=== PATIENT | female | born 1980 | race Caucasian/White ===

== ENCOUNTER 2017-06-23 10:29 | Emergency (ER) | payer MEDICAID ==
[~2017-06-23] VITALS: Ht 165.1 cm; Wt 85.0 kg
[2017-06-23] MEDS ORDERED: LORazepam 2 mg/ml vial IM ONE (12:05)
[2017-06-23] MEDS ORDERED: proCHLORperazine 10 MG/2 ml inj IM ONE (12:05)
[2017-06-23 12:35] LABS: URINE HCG NEGATIVE (NEG)
[2017-06-23 12:49] LABS: URINE AMPHETAMINE SCREEN NEGATIVE (Neg); URINE BARBITUATE SCREEN NEGATIVE (Neg); URINE BENZODIAZEPINES SCREEN NEGATIVE (Neg); URINE CANNABINOID SCREEN POSITIVE (Neg); URINE COCAINE SCREEN NEGATIVE (Neg); URINE METHADONE SCREEN NEGATIVE (Neg); URINE OPIATE SCREEN NEGATIVE (Neg); URINE PHENCYCLIDINE SCREEN NEGATIVE (Neg)
[2017-06-23] MEDS ORDERED: haloperidol lactate 5mg/ml inj IM ONE (13:45)
[2017-06-23] MEDS ORDERED: diphenhydrAMINE 50 mg/ml inj IM ONE (13:45)
[2017-06-23 13:57] VITALS: BP 154/91
[2017-06-23] MEDS ORDERED: ONDA4TAB6 PO (14:13)
[2017-06-23] MEDS ORDERED: ondansetron 4mg rapidly disintigrating tab PO ONE (14:15)
== END 2017-06-23 14:27 | disposition home or self-care (01) ==
LOC: ER 10:30
DX: F41.9 Anxiety disorder, unspecified (principal); F31.9 Bipolar disorder, unspecified; R11.2 Nausea with vomiting, unspecified; K21.9 Gastro-esophageal reflux disease without esophagitis; F15.10 Other stimulant abuse, uncomplicated; Z60.2 Problems related to living alone; Z56.0 Unemployment, unspecified; Z59.0 Homelessness; Z88.8 Allergy status to other drugs, medicaments and biological substances; Z79.899 Other long term (current) drug therapy
CPT/HCPCS: 80305; 81025; 96372; 99284; J0780; J1200; J1630; J2060

== ENCOUNTER 2019-08-10 09:47 | Emergency (ER) | payer MEDICAID ==
[~2019-08-10] VITALS: Ht 165.1 cm; Wt 65.0 kg
[~2019-08-10 09:47] MED LIST: ONDA4TAB6 PO
[2019-08-10 11:11] LABS: BASOPHILS % (AUTO) 0.7 % (0-1); EOSINOPHILS # (AUTO) 0.1 X10'3 (0-0.9); EOSINOPHILS % (AUTO) 1.6 % (0-6); HEMATOCRIT 41.3 % (35.0-45.0); HEMOGLOBIN 13.5 g/dl (12.0-16.0); LYMPHOCYTES # (AUTO) 2.2 X10'3 (1.1-4.8); LYMPHOCYTES % (AUTO) 40.5 % (21-51); MEAN CORPUSCULAR HEMOGLOBIN 30.2 PG (27.0-31.0); MEAN CORPUSCULAR HGB CONC 32.7 g/dL (33.0-36.5); MEAN CORPUSCULAR VOLUME 92.3 FL (78-98); MEAN PLATELET VOLUME 7.2 FL (7.4-10.4); MONOCYTES # (AUTO) 0.4 X10'3 (0-0.9); MONOCYTES % (AUTO) 7.2 % (2-12); NEUTROPHILS # (AUTO) 2.7 X10'3 (1.8-7.7); PLATELET COUNT 341 X10'3 (140-440); RED BLOOD COUNT 4.48 X10'6 (4.20-5.60); RED CELL DISTRIBUTION WIDTH 13.4 % (11.5-14.5); WHITE BLOOD COUNT 5.5 X10'3 (4.5-11.0)
[2019-08-10 11:16] LABS: URINE HCG NEGATIVE (NEG)
[2019-08-10 11:17] LABS: CLARITY,URINE SLIGHTLY CLOUDY (Clear); COLOR,URINE YELLOW (Yellow); GLUCOSE, URINE NEGATIVE (Neg); KETONES,URINE NEGATIVE (Neg); LEUKOCYTE ESTERASE ,URINE NEGATIVE (Neg); NITRITES, URINE NEGATIVE (Neg); OCCULT BLOOD,URINE NEGATIVE (Neg); PROTEIN,URINE NEGATIVE (Neg); UROBILINOGEN,URINE 0.2 E.U/dL (0.2-1.0)
[2019-08-10 11:18] LABS: UA COLLECTION TYPE CLN CATCH MIDSTREAM
[2019-08-10 11:22] LABS: MUCUS STRANDS FEW /LPF (Neg); SQUAMOUS EPITHELIAL CELL,UR FEW /LPF (FEW); URINE AMPHETAMINE SCREEN POSITIVE (Neg); URINE BARBITUATE SCREEN NEGATIVE (Neg); URINE BENZODIAZEPINES SCREEN NEGATIVE (Neg); URINE CANNABINOID SCREEN POSITIVE (Neg); URINE COCAINE SCREEN NEGATIVE (Neg); URINE METHADONE SCREEN NEGATIVE (Neg); URINE OPIATE SCREEN NEGATIVE (Neg); URINE PHENCYCLIDINE SCREEN NEGATIVE (Neg)
[2019-08-10 11:22] LABS: ALANINE AMINOTRANSFERASE 20 U/L (12-78); ALBUMIN 4.2 G/DL (3.4-5.0); ALBUMIN/GLOBULIN RATIO 1.3 (1.1-1.5); ALKALINE PHOSPHATASE 82 IU/L (46-116); ANION GAP 3 (8-16); ASPARTATE AMINO TRANSFERASE 17 U/L (10-37); BILIRUBIN,TOTAL 0.2 MG/DL (0.1-1.0); BLOOD UREA NITROGEN 11 MG/DL (7-18); BUN/CREATININE RATIO 15.7 (6.6-38.0); CALCIUM 9.1 MG/DL (8.5-10.1); CHLORIDE 104 MMOL/L (99-107); ETHANOL < 0.010 GM/DL (0.0-0.010); GLUCOSE 88 MG/DL (70-104); SODIUM 139 MMOL/L (135-145); TOTAL CARBON DIOXIDE 31.8 MMOL/L (24-32); TOTAL PROTEIN 7.5 G/DL (6.4-8.2); eGFR > 90 ML/MIN
[2019-08-10 11:23] LABS: BACTERIA,URINE 1+ /HPF (Neg); RBC,URINE 0-2 /HPF (0-2); WBC,URINE 0-4 /HPF (0-4)
[2019-08-10 11:24] LABS: AMORPHOUS PHOSPHATES 2+
[2019-08-10] MEDS ORDERED: NO HOME MEDS (12:00)
--- NOTE | 2019-08-10 12:01 | NUR ---
sleeping on back
--- NOTE | 2019-08-10 13:01 | NUR ---
resting in bed
--- NOTE | 2019-08-10 13:08 | NUR ---
PACKET FAXED TO [facility]
--- NOTE | 2019-08-10 15:06 | NUR ---
[place] evualted by county
--- NOTE | 2019-08-10 16:15 | NUR ---
standing near bed
--- NOTE | 2019-08-10 17:02 | NUR ---
standing near her bed
[2019-08-10 17:43] VITALS: BP 112/78
== END 2019-08-10 17:52 | disposition home or self-care (01) ==
LOC: ER 10:53
DX: F29 Unspecified psychosis not due to a substance or known physiological condition (principal); R33.9 Retention of urine, unspecified; F22 Delusional disorders; F41.9 Anxiety disorder, unspecified; F19.90 Other psychoactive substance use, unspecified, uncomplicated; K21.9 Gastro-esophageal reflux disease without esophagitis; F31.9 Bipolar disorder, unspecified; F17.200 Nicotine dependence, unspecified, uncomplicated; F15.90 Other stimulant use, unspecified, uncomplicated; Z98.890 Other specified postprocedural states; Z60.2 Problems related to living alone; Z59.0 Homelessness; Z56.0 Unemployment, unspecified; Z88.8 Allergy status to other drugs, medicaments and biological substances
CPT/HCPCS: 36415; 80053; 80305; 80320; 81001; 81025; 85025; 99283

== ENCOUNTER 2025-01-12 11:32 | Emergency (ER) | payer MEDICAID ==
[~2025-01-12] VITALS: Ht 165.1 cm; Wt 53.3 kg
[~2025-01-12 11:32] MED LIST changes: +NO HOME MEDS; -ONDA4TAB6 PO
[2025-01-12 11:35] VITALS: BP 148/96; PULSE 85; RESP 18; TEMP 97.9; O2SAT 100
[2025-01-12] MEDS: LIDOcaine 1% W/epiNEPHrine 1:100,000 20ml vial IJ ONE (11:55)
[2025-01-12] MEDS: TETanus/Pertussis (Acell)/Diphther VAC/PF (Tdap-Adult) 0.5ml syringe IMVAC ONE (11:55)
[2025-01-12] MEDS ORDERED: AMOX-117 PO (12:02)
--- NOTE | 2025-01-12 12:03 | Physician Documentation ---
History of Present Illness ~ Chief Complaint: Finger pain Stated Complaint: HAND PAIN Time Seen by MD: 11:53 OK to notify your PCP?: Yes Primary Medical Doctor: ARNOLD Source: patient Mode of Arrival: POV Exam Limitations: no limitations HPI 44-year-old female presents with pain and swelling of right ring finger at the tip. She states that she was touching a wood telephone pole and a large splinter got caught under her nail 3 days ago. She reports that this is not opened up and started draining on its own. She denies any fevers, nausea, vo miting, chills or diarrhea. Last tetanus unknown. Tetanus within 5 years: Yes Medication Reconciliation Allergies: Coded Allergies: cariprazine (Verified Allergy, Severe, DYSTONIC REACTION, 01/12/25) Scheduled Amox Tr/Potassium Clavulanate (Augmentin 875-125 Tablet), 1 TAB PO Q12H Miscellaneous Medications Home Med List (No Home Medications), (Reported) Past Medical History Past Medical History: GERD, Peptic Ulcer Disease, Anxiety, Bipolar Past Surgical History: Alcohol Use: None Drug Use: methamphetamine Lives with: Alone Lives In: Homeless Occupation: unemployed Review of Systems All Other Systems at this time: Reviewed and Negative Physical Exam Vital Signs: RN Vital Signs have been reviewed: Yes, Temperature: 97.9, Source: Oral, Heart Rate: 85, Respiratory Rate: 18, BP: 148/96, Pulse Oximetry: 100, Weight: 53.300 Oxygen Flow Rate: 0 Pulse Oximetry Reflects: adequate oxygenation Physical Exam General: Alert, no distress. HEENT: No injection, moist mucous membranes. Neck: Full range of motion. Respiratory: No respiratory distress, equal chest rise and fall. Chest: No accessory muscle use. Cardiovascular: Regular rate and rhythm. Gastrointestinal: Nondistended. Extremities: Normal range of motion of right ring finger, edema and erythema present. Paronychia with abscess to the lateral portion of right ring finger nail. Neurologic: Oriented x4. Psychiatric: Normal mood and affect. Skin: Normal color, warm and dry. Procedures Procedures Obtained verbal consent for incision and drainage from patient. I&D Procedure : Site: right ring finger Anesthesia: Lidocaine w/ Epi Volume Anesthetic (mls): 1 Blade Size: 11 Prep/Supplies: betadine prep, drapes applied, dressing applied Incision: pus drained, blood drained Tolerated Procedure Well?: yes, no complications Procedure Note I was able to remove the wood splinter during this process. Progress Results/Orders Reviewed/noted all lab results: Yes Results/Orders Orders - SOHEILA OSCAR Cult (Aer) Routine C&S+Gram St (01/12/25 11:53) Laceration/I&D Tray Set Up (01/12/25 11:53) Completed Orders - SOHEILA OSCAR Lidocaine 1% W/Epi 1:100,000 (Xylocaine (01/12/25 11:55) Tetanus/Pertuss/Diph Acell/Pf (Boostrix (01/12/25 11:55) Medications Received in ER Medications (Trade) Dose Ordered Sig/Stephani Route PRN Reason Start Time Stop Time Status Last Admin Dose Admin (Boostrix vaccine syringe) 0.5 ml ONCE ONCE IMVAC 01/12/25 11:55 01/12/25 11:58 DC 01/12/25 11:55 0.5 ML Vital Signs 01/12/25 11:35 Temp 97.9 Pulse 85 Resp 18 B/P (MAP) 148/96 Pulse Ox 100 O2 Flow Rate 0 Medical Decision Making Additional info obtained from: old records Findings She has a paronychia with an abscess to the right ring finger. I did a digital block and then incision and drainage and got a significant amount of blood and purulent drainage out. She was due for a tetanus vaccine so that was administered here in the department. I started her on Augmentin which was sent to her pharmacy. She was given wound care instructions as well as follow up instructions. Finger Diff Dx:Considerations: Include: Abrasion, Cellulitis, Fracture, La ceration, Neurovascular injury, Subungual hematoma Departure Disposition: 01 HOME / SELF CARE / HOMELESS Impression: Primary Impression: Paronychia of finger Additional Impression: Abscess Condition: Stable Discharge Instructions: Paronychia Additional Instructions: Please keep wound clean and dry. Return back here for any new or worsening symptoms. Take all antibiotics as prescribed and finish the course. Referrals: NO PRIMARY CARE PROVIDER (PCP) Prescriptions Amox Tr/Potassium Clavulanate (Augmentin 875-125 Tablet) 1 Each Tablet 1 TAB PO Q12H for 10 Days, #20 TAB Prov: SOHEILA OSCAR 01/12/25 Education Educated: Patient Educated regarding: diagnosis, treatment, prognosis, need for follow up Additional Comment Medical Screen Exam This patient recieved a medical screening examination. After reviewing the individual's medical complaints with presenting symptoms and performing an appropriate physical examination, it was determined that no immediate life- threatening emergency medical condition is present. This individual is also not a women having contractions. Signature Scribe Signature: . Attestation: Scribed for Soheila Oscar [employer] Hand by Soheila Jones NP . 01/12/25 14:38 Parts of this note were created using [employer] voice recognition software program. While efforts were made to correct any mistakes made by this voice recognition software program, nonsensical phrases may remain in this note. In addition, there may be errors and syntax, grammar, content and spelling. SOHEILA OSCAR CHRONIC DISEASE MANAGER Jan 12, 2025 12:03
== END 2025-01-12 13:03 | disposition home or self-care (01) ==
LOC: ER 11:33
DX: L03.011 Cellulitis of right finger (principal); L02.511 Cutaneous abscess of right hand; F31.9 Bipolar disorder, unspecified; K21.9 Gastro-esophageal reflux disease without esophagitis; F15.90 Other stimulant use, unspecified, uncomplicated; Z56.0 Unemployment, unspecified; Z59.00 Homelessness unspecified; Z60.2 Problems related to living alone; Z87.11 Personal history of peptic ulcer disease; Z88.8 Allergy status to other drugs, medicaments and biological substances
CPT/HCPCS: 26010; 90471; 90715; 99283; A6449

== ENCOUNTER 2025-02-04 18:16 | Emergency (ER) | payer MEDICAID ==
[~2025-02-04] VITALS: Ht 165.1 cm; Wt 59.1 kg
[2025-02-04 18:44] VITALS: BP 105/59; PULSE 79; RESP 16; TEMP 98.6; O2SAT 98
== END 2025-02-04 21:19 | disposition left against medical advice (07) ==
LOC: ER 18:16
DX: R10.20 Pelvic and perineal pain unspecified side (principal); R35.0 Frequency of micturition; Z88.8 Allergy status to other drugs, medicaments and biological substances; Z53.21 Procedure and treatment not carried out due to patient leaving prior to being seen by health care provider
CPT/HCPCS: 99281

== ENCOUNTER 2025-02-23 07:06 | Emergency (ER) | payer MEDICAID ==
[~2025-02-23] VITALS: Ht 165.1 cm; Wt 59.0 kg
[2025-02-23 07:08] VITALS: TEMP 97.5
--- NOTE | 2025-02-23 07:35 | Physician Documentation ---
History of Present Illness ~ Chief Complaint: Chest Pain Stated Complaint: CP Time Seen by MD: 07:34 Primary Medical Doctor: ARNOLD SCHWARZ 44-year-old female presenting with chest tightness She tells me that for the past 2 days she has been having tightness in her central chest. She states it has been constant and uncomfortable. She denies any fevers, chills, productive cough, shortness of breath. No abdominal pain, nausea or vomiting. No leg pain or swelling. No other related symptoms. No history of similar She denies any history of heart or lung problems. Per chart review she does use methamphetamines. Medication Reconciliation Allergies: Coded Allergies: cariprazine (Verified Allergy, Severe, DYSTONIC REACTION, 01/12/25) Miscellaneous Medications Home Med List (No Home Medications), (Reported) Past Medical History Past Medical History: GERD, Peptic Ulcer Disease, Anxiety, Bipolar Past Surgical History: Alcohol Use: None Drug Use: methamphetamine Lives with: Alone Lives In: Homeless Occupation: unemployed Review of Systems Constitutional: Denies: fever Respiratory: Denies: shortness of breath Cardiovascular: Reports: chest pain; Denies: diaphoresis Physical Exam Vital Signs: Temperature: 97.5, Source: Temporal, Heart Rate: 76, Respiratory Rate: 14, BP: 104/67, Pulse Oximetry: 99, Weight: 59.000 Physical Exam General: This is a pleasant and mildly anxious appearing young female, not in distress HEENT: Atraumatic, oropharynx is moist Heart: Mild tachycardic, appears regular, no murmur, normal-appearing peripheral perfusion including normal right radial pulse Lungs: Clear breath sounds bilateral, normal work of breathing, normal oxygen saturation on room air. No tenderness on palpation of the chest wall, no overlying rashes Abdomen: Soft, nondistended, nontender all quadrants including in the epigastric region Extremities: Warm and well-perfused, no edema Neuro: Alert and oriented Psychiatric: Appears mildly anxious but is cooperative with exam Progress Results/Orders Results/Orders Orders - SHIRA HANNA MD Chest,Two Views (02/23/25 07:43) Completed Orders - SHIRA HANNA MD Hs Troponin I W Calculations (02/23/25 07:43) Cbc/Diff (02/23/25 07:43) CMP (02/23/25 07:43) PBNP (02/23/25 07:43) Chest,Two Views (02/23/25 07:43) Electrocardiogram (02/23/25 07:53) Vital Signs 02/23/25 02/23/25 02/23/25 02/23/25 07:08 07:17 08:04 08:55 Temp 97.5 Pulse 79 76 78 Resp 15 14 15 14 B/P (MAP) 129/84 104/67 (79) 128/86 (100) Pulse Ox 99 99 98 Laboratory Tests Test 02/23/25 08:20 White Blood Count 7.6 Red Blood Count 4.80 Hemoglobin 14.1 Hematocrit 42.6 Mean Corpuscular Volume 88.9 Mean Corpuscular Hemoglobin 29.3 Mean Corpuscular Hemoglobin Concent 33.0 Red Cell Distribution Width 14.1 Platelet Count 317 Mean Platelet Volume 6.9 L Neutrophils (%) (Auto) 66.4 Lymphocytes (%) (Auto) 28.3 Monocytes (%) (Auto) 3.9 Eosinophils (%) (Auto) 1.0 Basophils (%) (Auto) 0.4 Neutrophils # (Auto) 5.0 Lymphocytes # (Auto) 2.1 Monocytes # (Auto) 0.3 Eosinophils # (Auto) 0.1 Basophils # (Auto) 0.0 CBC Comment Sodium Level 142 Potassium Level 3.8 Chloride Level 103 Carbon Dioxide Level 30.3 Anion Gap 9 Blood Urea Nitrogen 9 Creatinine 0.56 Estimated GFR/1.73 m2 > 90 BUN/Creatinine Ratio 16.1 Glucose Level 84 Calcium Level 8.8 Total Bilirubin 0.3 Aspartate Amino Transf (AST/SGOT) 21 Alanine Aminotransferase (ALT/SGPT) 20 Alkaline Phosphatase 79 Troponin I High Sensitivity 4 Pro-B-Type Natriuretic Peptide 49 Total Protein 6.7 Albumin 3.4 Globulin 3.3 Albumin/Globulin Ratio 1.0 L Chemistry Comments EKG/XRAY/CT/US/VASC/MRI EKG : Additional Comment I personally interpreted the EKG and this shows: Sinus rhythm, rate 72, QTC 431, anterior Q-waves, no STEMI Chest X-Ray : Additional Comments I personally interpreted the x-ray, and it shows: No focal consolidation, pulmonary edema, or pneumothorax Heart Score: Heart Score Response (Comments) Value History Slightly Suspicious 0 EKG Repolarization Disturb 1 Age <45 0 Risk Factors No known risk factors 0 Troponin Normal limit 0 Total 1 Medical Decision Making Additional information obtaine: N/A Findings na Heart Score: 1 Differential Dx:Considerations: Include: angina, aortic dissection, chest wall pain, CHF, costochondritis, esophageal reflux/spasm, gastritis, pulmonary e mbolus Additional Information The patient presents with 2 days of chest discomfort. She has no other assoc iated symptoms. Her workup was unremarkable including 2- troponins. Chest x- ray normal. No evidence of an acute medical or surgical emergency at this time. I doubt PE. I doubt dissection. I doubt dangerous infection. The patient was reassured, and will be discharged with symptomatic treatment and return precautions. Departure Time of Disposition: 09:17 Disposition: 01 HOME / SELF CARE / HOMELESS Impression: Primary Impression: Acute chest pain Condition: Improved Discharge Instructions: Nonspecific Chest Pain, Adult Referrals: NO PRIMARY CARE PROVIDER (PCP) Education Educated: Patient Educated regarding: diagnosis, need for follow up Signature Scribe Signature: na Attestation: SHIRA Mcneil MD Feb 23, 2025 07:35
--- NOTE | 2025-02-23 07:58 | ELECTROCARDIOGRAPH REPORT ---
[facility] Test Date: 2025-02-23 Test Time: 07:55:35 Pat Name: AJITH MADDEN Department: [facility]- Patient ID: [facility]-[id number] Room: Gender: F Retail Service Lead Merchandiser: : 1980 Requested By: SHIRA HANNA Order Number: [id number] Reading MD: Dr. Marcin Gannon Measurements Intervals [place] Rate: 72 P: 73 NM: 159 QRS: 76 QRSD: 82 T: 65 QT: 393 QTc: 431 Interpretive Statements Sinus rhythm Probable anteroseptal infarct, old Electronically Signed On 02-25-2025 9:40:[address] Marcin Gannon Please click the below link to view image of tracing.
--- NOTE | 2025-02-23 08:31 | RADIOLOGY REPORT ---
Chest x-ray Technique: PA and lateral views CLINICAL INDICATION: central chest tightness FINDINGS: Heart size is normal. No infiltrates or effusions. No bony thoracic abnormalities. IMPRESSION: 1. Normal chest x-ray.
[2025-02-23 08:38] LABS: MEAN PLATELET VOLUME 6.9 FL (7.4-10.4); RED CELL DISTRIBUTION WIDTH 14.1 % (11.5-14.5)
[2025-02-23 09:08] LABS: CREATININE 0.56 MG/DL (0.40-0.90); TOTAL CARBON DIOXIDE 30.3 MMOL/L (24-32); eCRCL 115 ML/MIN; eGFR > 90 ML/MIN
[2025-02-23 09:13] LABS: PRO BRAIN NATRIURETIC PEPTIDE 49 PG/ML (0-125)
[2025-02-23 09:46] VITALS: BP 112/89; PULSE 77; RESP 14; O2SAT 99
== END 2025-02-23 09:48 | disposition home or self-care (01) ==
LOC: ER 07:07
DX: R07.9 Chest pain, unspecified (principal); F31.9 Bipolar disorder, unspecified; Z87.11 Personal history of peptic ulcer disease; Z88.8 Allergy status to other drugs, medicaments and biological substances
CPT/HCPCS: 36415; 71046; 80053; 83880; 84484; 85025; 93005; 99285

== ENCOUNTER 2025-03-06 16:37 | Emergency (ER) | payer MEDICAID ==
[~2025-03-06] VITALS: Ht 165.1 cm; Wt 60.3 kg
[2025-03-06 16:40] VITALS: BP 105/53; PULSE 65; O2SAT 100
[2025-03-06 19:13] VITALS: TEMP 98.6
--- NOTE | 2025-03-06 19:17 | Physician Documentation ---
History of Present Illness ~ Chief Complaint: Ear Pain Stated Complaint: L EAR PAIN Time Seen by MD: 18:21 Primary Medical Doctor: [facility] This is a 44-year-old female who presents with two days of left ear pain without fever, sore throat, or other symptoms. Medication Reconciliation Allergies: Coded Allergies: cariprazine (Verified Allergy, Severe, DYSTONIC REACTION, 03/06/25) Scheduled Ciprofloxacin HCl/Dexameth (Ciproflox-Dexameth Otic Susp), 4 DROP LEFT EAR BID Ibuprofen (Ibuprofen), 1 TAB PO Q8H Miscellaneous Medications Home Med List (No Home Medications), (Reported) Past Medical History Past Medical History: GERD, Peptic Ulcer Disease, Anxiety, Bipolar Past Surgical History: Alcohol Use: None Drug Use: methamphetamine Lives with: Alone Lives In: Homeless Occupation: unemployed Review of Systems ROS As stated above in the HPI, otherwise all systems are reviewed and negative. Physical Exam Vital Signs: Temperature: 98.6, Source: Oral, Heart Rate: 65, Respiratory Rate: 19, BP: 105/53, Pulse Oximetry: 100, Weight: 60.300 Oxygen Flow Rate: 0 Physical Exam VITALS: Reviewed and as above. GENERAL: Alert, nontoxic appearing, no apparent distress. HEENT: Left auditory canal erythematous, swollen, purulent material in ear canal, right auditory canal clear, TM intact with normal exam, no facial swelling, no postauricular tenderness or swelling RESPIRATORY: No increased work of breathing, no respiratory distress, speaking in full clear sentences Progress Results/Orders Results/Orders Completed Orders - JOSE HAWLEY [employer]BBISH COLLECTION SUPERVISOR Cipro 0.3%/Dexameth 0.1% Otic (Ciproflox (03/06/25 19:20) Ketorolac Trometh 15mg/Ml Vial (Toradol (03/06/25 19:20) Vital Signs 03/06/25 03/06/25 03/06/25 16:40 19:13 19:35 Temp 98.6 98.6 Pulse 65 Resp 19 18 B/P (MAP) 105/53 Pulse Ox 100 O2 Flow Rate 0 Medical Decision Making Additional information obtaine: N/A Findings This 44-year-old female presented with two days of left ear pain without fever, chills, sore throat, cough, or other symptoms. Physical exam demonstrated swollen, tender, and erythematous auditory canal with purulent material in ear canal obstructing TM, physical exam is consistent with otitis externa. Patient is otherwise well-appearing and appropriate for outpatient follow up, patient will be discharged on course of otic drops. Patient provided home care i nstructions return to care precautions and follow up instructions which she verbalized understanding of. Ear Diff. Dx: Considerations: Include: Abrasion, Cerumen impaction, Foreign body, Otitis externa, Barotrauma, Otitis media, Perforation, Referred pain- dental, Referred pain-pharyngitis, Referred pain-sinusitis, Referred pain-TMJ syn., Tympanic Membrane Injury Eye Diff. Dx: Considerations: Unlikely: Chalazoin, Conjuctivits-allergic, Conjuctivitis-bacterial, Conjuctivits-chlamydial, Conjuctivitis-viral, Corneal abrasion, Corneal laceration, Corneal ulceration, Foreign body-conjuctiva, For eign body-corneal, Foreign body-intraocular, Foreign body-lid, Glaucoma, Globe rupture, Hordeolum, Iritis, Orbital cellulitis, Periobital cellulitis, Retinal artery occulsion, Retinal vein occlusion, Rust ring, Subconjunctival hem, Ultraviolet keratitis, Uveitis, Vitreous hemorrhage, Other Nose Diff. Dx: Considerations: Unlikely: Abrasion, Anterior nasal bleed, Avulsion, Contusion, Coagulopathy, Fracture-nasal bone, Fracture-septum, Hypertension, Laceration, Other, Posterior nasal bleed, Retained foreign body, Septal hematoma Tooth Diff. Dx: Considerations: Unlikely: Alveolar fracture, Aveolar osteitis, ANUG, Facial cellulitis, Periapical abscess, Periodontal abscess, Post- extraction bleeding, Pulpitis, Trigeminal neuralgia, Tooth-avulsion, Tooth- eruption, Tooth-fracture, Tooth-subluxation, Other Throat Diff Dx: Considerations: Unlikely: AIDS, Epiglottitis, Esophageal candidiasis, Hand foot mouth disease, Herpangina, Herpetic stomatitis, Herpes simplex, Infection mononucleosis, Immunodeficiency, Haseeb's angina, Peritonsillar abscess, Peritonsillar cellulitis, Pharyngitis-diphtheria, Pharyngitis-strepococcal, Pharyngitis-viral, Thrush, URI, Other Departure Time of Disposition: 19:15 Disposition: 01 HOME / SELF CARE / HOMELESS Impression: Primary Impression: Otitis externa Qualified Codes: H60.502 - Unspecified acute noninfective otitis externa, left ear Condition: Improved Discharge Instructions: Otitis Externa, [id number] Additional Instructions: Please use the ear drops as prescribed, you may use the prescribed ibuprofen as needed for pain, you may add Tylenol for breakthrough pain as directed by [id number] packaging. Please follow up with your primary care provider in the next few days. Please return to the emergency department for any new or worsening concerning symptoms including but not limited to worsening pain or if you develop a fever. Referrals: NO PRIMARY CARE PROVIDER (PCP) Prescriptions Ibuprofen (Ibuprofen) 800 Mg Tablet 1 TAB PO Q8H for pain for 10 Days, #30 TAB 0 Refills Prov: JOSE HAWLEY 03/06/25 Ciprofloxacin HCl/Dexameth (Ciproflox-Dexameth Otic Susp) 0.3 %-0.1 % Drops.susp 4 DROP LEFT EAR BID for 7 Days, #1 BOT Prov: JOSE HAWLEYP 03/06/25 Education Educated: Patient Educated regarding: diagnosis, treatment, prognosis, need for follow up Signature Scribe Signature: No scribe Attestation: The note accurately reflects work and decisions made by me.DAVID Branch 03/08/25 01:44 JOSE HAWLEY Mar 06, 2025 19:17
[2025-03-06] MEDS ORDERED: IBUP-1986 PO (19:18)
[2025-03-06] MEDS ORDERED: CIPR7.5D7 LEFT EAR (19:18)
[2025-03-06 19:35] VITALS: RESP 18
[2025-03-06] MEDS: ketorolac trometh 15mg/ml vial 15 MG/ML ML IM ONE (19:35)
[2025-03-06] MEDS: CIPROFLOXACIN HCL/DEXAMETH 7.5 ML DROPS.SUSP LEFT EAR ONE (19:35)
== END 2025-03-06 19:38 | disposition home or self-care (01) ==
LOC: ER 16:37
DX: H60.92 Unspecified otitis externa, left ear (principal); F31.9 Bipolar disorder, unspecified; K21.9 Gastro-esophageal reflux disease without esophagitis; F15.90 Other stimulant use, unspecified, uncomplicated; Z87.11 Personal history of peptic ulcer disease; Z88.8 Allergy status to other drugs, medicaments and biological substances; Z79.899 Other long term (current) drug therapy; Z98.890 Other specified postprocedural states; Z56.0 Unemployment, unspecified; Z59.00 Homelessness unspecified; Z60.2 Problems related to living alone
CPT/HCPCS: 96372; 99283; J1885